=== PATIENT | male | born 1955 | race Caucasian/White ===

== ENCOUNTER → 2017-09-22 | Day surgery (SDC) | payer OTHER ==
[2017-09-20 08:26] VITALS: Ht 174 cm; Wt 77.3 kg
[~2017-09-22] VITALS: Ht 174 cm; Wt 77.3 kg
[~2017-09-22] MED LIST: ASPI81TA28 PO; ATOR-22 PO; LIDOCAINE HCL 2% 2 ML VIAL (20MG/ML) ONE; MIDAZOLAM HCL 1 MG/ML 2ML VIAL ONE; PROPOFOL IV EMULSION 10 MG/ML 20 ML VIAL ONE; SODIUM CHLORIDE 0.9% 500ML 500 ML IV ONE; VITATAB19 PO
--- NOTE | 2017-09-22 12:47 | Endo History and Physical ---
History & Physical Date of Service: Sep 22, 2017. Chief Complaint: Rectal bleeding Referring Physician: KENNEY Amin History of Present Illness 62 yo CM who presents for colonoscopy secondary to rectal bleeding. Past Surgical History Hx Cardiac Surgery: No Hx Internal Defibrillator: No Hx Pacemaker: No Hx Abdominal Surgery: No Hx of Implantable Prosthesis: No Hx Post-Op Nausea and Vomiting: No Hx Cancer Surgery: No Hx Thoracic Surgery: No Hx Orthopedic: Yes (L HAND FX REPAIR, L ARM FX REPAIR) Hx Urinary Tract Surgery: No Social History Smoking Status: Former Smoker Hx Substance Use: No Hx Alcohol Use: Yes (2-3 BEERS ON WEEKENDS) Allergies Coded Allergies: No Known Allergies (Verified , 09/22/17) Current Medications Reported Home Medications Medications Dose Route/Sig Max Daily Dose Days Date Category Vitamin A (Vitamin A-Beta Carotene) 1 Tab Tab 1 Tab PO 4XWK 09/20/17 Reported Aspirin Ec (Aspirin) 81 Mg Tab 81 Mg PO QPM 09/20/17 Reported Lipitor (Atorvastatin Calcium) 20 Mg Tab 20 Mg PO QPM 09/20/17 Reported Vital Signs Weight (Kilograms): 77.27 Height (Feet): 5 Height (Inches): 8.5 Physical Exam General Appearance: WD/WN, no apparent distress Respiratory/Chest: Auscultation: breath sounds normal Cardiovascular: Heart Auscultation: RRR Abdomen: Bowel Sounds: normal Inspection & Palpation: soft, non-distended, no tenderness, guarding & rebound Assessment and Plan Assessment: 62 yo CM who presents for colonoscopy secondary to rectal bleeding. Plan: Proceed with colonoscopy.
--- NOTE | 2017-09-22 14:01 | Discharge Instructions ---
Endoscopy Patient Instructions Date / Procedure(s) Performed Sep 22, 2017. Colonoscopy Allergy Information Coded Allergies: No Known Allergies (Verified , 09/22/17) Discharge Date / Findings Sep 22, 2017. Internal hemorrhoids Medication Instructions Stopped Medication(s): ASA OK to resume all medications today as prescribed Reported Home Medications Medications Dose Route/Sig Max Daily Dose Days Date Category Vitamin A (Vitamin A-Beta Carotene) 1 Tab Tab 1 Tab PO 4XWK 09/20/17 Reported Aspirin Ec (Aspirin) 81 Mg Tab 81 Mg PO QPM 09/20/17 Reported Lipitor (Atorvastatin Calcium) 20 Mg Tab 20 Mg PO QPM 09/20/17 Reported Provider Instructions Activity Restrictions - No exercising or heavy lifting for 24 hours. - Do not drink alcohol the day of the procedure. - Do not drive a car or operate machinery until the day after the procedure. - Do not make any important decisions or sign important papers in 24 hours after the procedure. Following Day: - Return to full activity which may include returning to work/school. Diet Start your diet with liquids and light foods (jello, soup, juice, toast). Then eat your usual diet if not nauseated. Treatment For Common After Affects For mild abdominal pain, bloating, or excessive gas: - Rest - Eat lightly - Lie on right side Follow-Up Information Follow-up with Dr Estes as scheduled Anesthesia Information What You Should Know You have had a procedure that required some medicine to reduce anxiety and discomfort. This treatment is called moderate sedation. After receiving the treatment, you may be sleepy, but you will be able to breathe on your own. The effects of the treatment may last for several hours. Follow these instructions along with Activity/Diet recommendations noted above: * Do NOT do anything where dizziness or clumsiness would be dangerous. * Rest quietly at home today, then you can be up and about tomorrow. * Have a responsible person stay with you the rest of today. * You may have had an I.V. today. If so, you may take the dressing off later today. Recommendations Call your doctor if: * Trouble breathing * Continuous vomiting for more than 24 hours * Temperature above 101 degrees * Severe abdominal pain or bloating * Pain not relieved by pain medicine ordered * There is increased drainage or redness from any incision * A large amount of rectal bleeding greater than 2-3 tablespoons. (If you had a polyp/s removed or have hemorrhoids, a small amount of blood - from the rectum is to be expected.) * You have any unanswered questions or concerns. IN THE EVENT OF A SERIOUS EMERGENCY, GO TO THE NEAREST EMERGENCY ROOM Your discharge instructions were prepared by provider Rusty Salgado. Patient Instructions Signature Page Ghassan Garcia Patient (or Guardian) Signature/Date: I have read and understand the instructions given to me by my caregivers. Caregiver/RN/Doctor Signature/Date: The above-named patient and/or guardian has received patient instructions on this date. + Original Patient Signature Page (only) stays with chart. Please make copy for patient.
--- NOTE | 2017-09-22 14:04 | GI REPORT ---
Patient Name: Ghassan Garcia Procedure Date: 09/22/2017 1:15 PM Date of : 1955 Admit Type: Outpatient Age: 62 Gender: Male Attending MD: Rusty Salgado DO Procedure: Colonoscopy Providers: Rusty Salgado DO Referring MD: Lou Oscar Indications: Rectal bleeding Medicines: Monitored Anesthesia Care Complications: No immediate complications. Estimated Blood Loss: Estimated blood loss: none. Procedure: Pre-Anesthesia Assessment: - Prior to the procedure, a History and Physical was performed, and patient medications and allergies were reviewed. The patient's tolerance of previous anesthesia was also reviewed. The risks and benefits of the procedure and the sedation options and risks were discussed with the patient. All questions were answered, and informed consent was obtained. Prior Anticoagulants: The patient has taken aspirin, last dose was 1 day prior to procedure. ASA Grade Assessment: II - A patient with mild systemic disease. After reviewing the risks and benefits, the patient was deemed in satisfactory condition to undergo the procedure. After I obtained informed consent, the scope was passed under direct vision. Throughout the procedure, the patient's blood pressure, pulse, and oxygen saturations were monitored continuously. The scope was introduced through the anus and advanced to the terminal ileum. The colonoscopy was performed without difficulty. The patient tolerated the procedure well. The quality of the bowel preparation was good. The terminal ileum, ileocecal valve, appendiceal orifice, and rectum were photographed. Findings: The perianal and digital rectal examinations were normal. Non-bleeding internal hemorrhoids were found during retroflexion. The hemorrhoids were small. Impression: - Non-bleeding internal hemorrhoids. - No specimens collected. Recommendation: - Resume previous diet. - Continue present medications. - Repeat colonoscopy in 10 years for surveillance. - Return to primary care physician as previously scheduled. Rusty Salgado DO 09/22/2017 2:04:32 PM This report has been signed electronically. Note Initiated On: 09/22/2017 1:15 PM Number of Addenda: 0 I attest to the content of the Intraoperative Record and orders documented therein, exceptions below {[id number]}
--- NOTE | 2017-09-22 14:08 | Anesthesiology Progress Note ---
Anesthesia Post Op Note Date & Time Sep 22, 2017 at 14:07 Vital Signs Pain Intensity: 0 Vital Signs Past 12 Hours Date Time Temp Pulse Resp B/P (MAP) Pulse Ox O2 Delivery O2 Flow Rate FiO2 09/22/17 14:04 48 20 98/64 (75) 95 Room Air 09/22/17 13:49 46 20 106/65 (79) 95 Room Air 09/22/17 12:49 36.6 43 18 119/73 (88) 100 Room Air Notes Mental Status: alert / awake / arousable, participated in evaluation Pt Amnestic to Procedure: Yes Nausea / Vomiting: adequately controlled Pain: adequately controlled Airway Patency, RR, SpO2: stable & adequate BP & HR: stable & adequate Hydration State: stable & adequate Anesthetic Complications: no major complications apparent
[2017-09-22 14:19] VITALS: BP 109/68; PULSE 45; O2SAT 100
== END | disposition home or self-care (01) ==
LOC: C.GI 12:26
PROVIDERS: ATTEND Internal Medicine
DX: K62.5 Hemorrhage of anus and rectum (principal); K64.8 Other hemorrhoids; G47.33 Obstructive sleep apnea (adult) (pediatric); M19.90 Unspecified osteoarthritis, unspecified site; E78.2 Mixed hyperlipidemia; Z87.891 Personal history of nicotine dependence; Z79.899 Other long term (current) drug therapy; Z79.82 Long term (current) use of aspirin